=== PATIENT | female | born 1980 | race Caucasian/White ===

== ENCOUNTER 2016-03-04 13:39 | Emergency (ER) | payer BC ==
[2016-03-04 14:05] VITALS: BP 122/72
--- NOTE | 2016-03-04 14:21 | UC ---
Throat Pain/Nasal Pantera HPI - HPI Summary HPI Summary: SORE THROAT X 2 DAYS + MILD NASAL CONGESTION, COUGH, NO FEVER, NO CHILLS, NO BODY ACHES - History of Current Complaint Chief Complaint: UCRespiratory Stated Complaint: SORE THROAT Time Seen by Provider: 03/04/16 14:10 Hx Obtained From: Patient Hx Last Menstrual Period: 02/02/16 Onset/Duration: Gradual Onset, Lasting Days - 2 DAYS, Still Present Severity: Moderate Cough: Nonproductive Associated Signs & Symptoms: Positive: Nasal Discharge. Negative: Fever, Rash - Allergies/Home Medications Allergies/Adverse Reactions: Allergies Allergy/AdvReac Type Severity Reaction Status Date / Time No Known Allergies Allergy Verified 03/04/16 14:05 Home Medications: Home Medications Ibuprofen [Ibuprofen 200 MG] 400 mg PO PRN 03/04/16 [History] PMH/Surg Hx/FS Hx/Imm Hx Endocrine History Of: Denies: Diabetes Cardiovascular History Of: Denies: Cardiac Disorders Respiratory History Of: Denies: COPD GI/ History Of: Denies: Gastroesophageal Reflux Neurological History Of: Denies: TIA Psychological History Of: Denies: Anxiety Cancer History Of: Denies: Lung Cancer Other History Of: Negative For: HIV - Surgical History Surgical History: Yes Surgery Procedure, Year, and Place: L knee - Family History Known Family History: Positive: None Negative: Diabetes - Social History Alcohol Use: Occasionally Substance Use Type: None Smoking Status (MU): Never Smoked Tobacco - Immunization History Most Recent Influenza Vaccination: [id number] Review of Systems Constitutional: Negative Skin: Negative Eyes: Negative ENT: Sore Throat, Nasal Discharge Respiratory: Cough Cardiovascular: Negative Gastrointestinal: Negative Genitourinary: Negative All Other Systems Reviewed And Are Negative: Yes Physical Exam Triage Information Reviewed: Yes Appearance: Well-Appearing, No Pain Distress, Well-Nourished Vital Signs: Initial Vital Signs Temp 98.7 F 03/04/16 13:58 Pulse 82 03/04/16 13:58 Resp 16 03/04/16 13:58 BP 122/72 03/04/16 13:58 Pulse Ox 100 03/04/16 13:58 Vital Signs Reviewed: Yes Eyes: Positive: Conjunctiva Clear ENT: Positive: Normal ENT inspection, Hearing grossly normal, Pharyngeal erythema, Nasal congestion, TMs normal Neck exam: Normal Neck: Positive: Supple, Nontender, No Lymphadenopathy Respiratory: Positive: Chest non-tender, Lungs clear, Normal breath sounds Cardiovascular: Positive: RRR, No Murmur, Pulses Normal Abdominal Exam: Normal Skin Exam: Normal Throat Pain/Nasal Course/Dx - Differential Dx/Diagnosis Provider Diagnoses: VIRAL PHARYNGITIS Discharge - Discharge Plan Condition: Stable Disposition: HOME Patient Education Materials: Pharyngitis (ED) Referrals: Emily Ramírez [Primary Care Provider] - If Needed Additional Instructions: VIRAL INFECTION NO NEED FOR ABX AT THIS TIME CONT. WITH REST, INCREASE FLUID, TYLENOL NEEDED FOR PAIN AND FEVER FOLLOW UP NEEDED
== END 2016-03-04 14:36 | disposition home or self-care (01) ==
LOC: UCCORT 13:39
DX: J02.9 Acute pharyngitis, unspecified (principal); R09.81 Nasal congestion; R05 Cough
CPT/HCPCS: 99211; G0463

== ENCOUNTER 2018-08-18 09:26 | Emergency (ER) | payer BC ==
[2018-08-18 09:53] VITALS: BP 145/86
--- NOTE | 2018-08-18 10:32 | UC ---
Throat Pain/Nasal Pantera HPI - HPI Summary HPI Summary: sore throat x 2 weeks getting worse over the past 2 days nasal congestion , pnd , no fever, no chills took few doses of Amoxicillin her son has strep throat - History of Current Complaint Chief Complaint: UCGeneralIllness Stated Complaint: SORE THROAT Time Seen by Provider: 08/18/18 09:47 Hx Obtained From: Patient Hx Last Menstrual Period: 08/11/18 ?: No Onset/Duration: Gradual Onset, Lasting Weeks - 2, Still Present, Worse Since - past 2 days Pain Intensity: 7 Pain Scale Used: 0-10 Numeric Cough: None Associated Signs & Symptoms: Positive: Nasal Discharge. Negative: Dysphagia, FB Sensation, Drooling, Wheezing, Hoarseness, Sinus Discomfort, Fever, Vomiting , Rash - Allergies/Home Medications Allergies/Adverse Reactions: Allergies Allergy/AdvReac Type Severity Reaction Status Date / Time No Known Allergies Allergy Verified 08/18/18 09:53 Home Medications: Home Medications Fexofenadine/Pseudoephedrine [Meghan-D 24 Hour Tablet] 1 tab PO DAILY 08/18/18 [History Confirmed 08/18/18] Ibuprofen 2 tab PO ONCE 08/18/18 [History Confirmed 08/18/18] PMH/Surg Hx/FS Hx/Imm Hx Previously Healthy: Yes Other History Of: Negative For: HIV - Surgical History Surgical History: Yes Surgery Procedure, Year, and Place: L knee - Family History Known Family History: Positive: None Negative: Diabetes - Social History Alcohol Use: Weekly Substance Use Type: None Smoking Status (MU): Never Smoked Tobacco - Immunization History Most Recent Influenza Vaccination: [id number] Review of Systems All Other Systems Reviewed And Are Negative: Yes Constitutional: Positive: Negative Skin: Positive: Negative Eyes: Positive: Negative ENT: Positive: Sore Throat. Negative: Nasal Discharge Respiratory: Positive: Negative. Negative: Cough Is Patient Immunocompromised?: No Physical Exam Triage Information Reviewed: Yes Appearance: Well-Appearing, No Pain Distress, Well-Nourished Vital Signs: Initial Vital Signs Temp 99 F 08/18/18 09:47 Pulse 100 08/18/18 09:47 Resp 18 08/18/18 09:47 BP 145/86 08/18/18 09:47 Pulse Ox 100 08/18/18 09:47 Vital Signs Reviewed: Yes Eye Exam: Normal Eyes: Positive: Conjunctiva Clear ENT: Positive: Normal ENT inspection, Hearing grossly normal, Pharyngeal erythema, TMs normal, Tonsillar swelling, Tonsillar exudate. Negative: Nasal congestion, Nasal drainage, TM bulging, TM dull, TM red Neck: Positive: Supple, Nontender, No Lymphadenopathy Respiratory: Positive: Chest non-tender, Lungs clear, Normal breath sounds Cardiovascular: Positive: RRR, No Murmur, Pulses Normal Skin Exam: Normal Throat Pain/Nasal Course/Dx - Differential Dx/Diagnosis Provider Diagnosis: Pharyngitis Discharge - Sign-Out/Discharge Documenting (check all that apply): Patient Departure All imaging exams completed and their final reports reviewed: No Studies - Discharge Plan Condition: Stable Disposition: HOME Prescriptions: Amoxicillin PO (*) [Amoxicillin 875 MG (*)] 875 mg PO BID #20 tab Patient Education Materials: Pharyngitis (ED) Referrals: Klaus Good MD [Primary Care Provider] - If Needed - Billing Disposition and Condition Condition: STABLE Disposition: Home
== END 2018-08-18 10:04 | disposition home or self-care (01) ==
LOC: UCCORT 09:26
DX: J02.9 Acute pharyngitis, unspecified (principal); R09.81 Nasal congestion
CPT/HCPCS: 99212; G0463